=== PATIENT | female | born 1965 | race Caucasian/White ===

== ENCOUNTER 2019-07-12 16:22 | IRF | payer OTHER, BC, SELFPAY ==
--- NOTE | 2019-07-12 16:43 | PC.NURSE ---
This patient, Meliza Parisi, was admitted to [facility] Room 226-01. Patient/family oriented to hospital policies and general routines including ID bracelet, bed and alarms, visiting hours, pain management, procedures, bathroom and other care routines, personal items, smoking policy, room service/diet, and visiting hours. Valuables list has been completed. Information on how to activate the Rapid Response Team has been discussed. Patient/Family are encouraged to report perceived risks to care and to ask questions if they do not understand what they are told or what they should do.
[2019-07-12 18:51] VITALS: BP 131/71; PULSE 74; RESP 22; TEMP 36.7; O2SAT 98; BMI 41.1
[2019-07-12 21:49] VITALS: BP 133/70; PULSE 87; RESP 20; TEMP 37.5; O2SAT 98
[2019-07-13 04:35] LABS: Basophils Percent Auto 0.4 % (0.2-1.2); Eosinophils Absolute Auto 0.5 K/mm3 (0-0.3); Eosinophils Percent Auto 5.1 % (0-4.4); Hematocrit 33.2 % (37.0-47.0); Hemoglobin 10.3 g/dL (12.0-15.0); Immature Granulocyte Absolute 0.04 K/mm3 (0.00-0.031); Immature Granulocyte Percent A 0.4 % (0-0.5); Lymphocytes Absolute Auto 2.84 K/mm3 (0.9-3.2); Lymphocytes Percent Auto 28.8 % (18.3-44.2); Mean Corpuscular Hemoglobin 26.8 pg (26-34); Mean Corpuscular Volume 86.5 fl (80-100); Mean Platelet Volume 10.1 fl (7.4-10.4); Monocytes Absolute Auto 1.3 K/mm3 (0.1-0.6); Monocytes Percent Auto 13.1 % (2.6-8.5); Neutrophils Absolute Auto 5.1 K/mm3 (1.3-6.7); Neutrophils Percent Auto 52.2 % (45.5-73.1); Platelet Count Result 233 k/mm3 (150-375); Red Blood Count 3.84 M/mm3 (4.2-5.4); Red Cell Distribution Width 14.1 % (11.5-14.5); White Blood Count 9.9 K/mm3 (4.5-10.0)
[2019-07-13 04:48] LABS: Blood Urea Nitrogen 15 mg/dL (7-17); Carbon Dioxide 32 mmol/L (22-30); Chloride 100 mmol/L (98-107); Estimated CRCL calculation 78 ml/min; Estimated Glomerular Filt Rate > 60; Glucose 107 mg/dL (65-105); Potassium 3.9 mmol/L (3.4-5.0); Sodium 135 mmol/L (137-145)
[2019-07-13 06:24] VITALS: BP 136/72; PULSE 86; RESP 18; TEMP 37.2; O2SAT 97
[2019-07-13] MEDS: MAGNESIUM OXIDE 400 MG TABLET PO (08:50)
[2019-07-13] MEDS: SPIRONOLACTONE 25 MG TABLET PO (08:50)
[2019-07-13] MEDS: ASPIRIN 81 MG ENTERIC TABLET PO (08:50)
[2019-07-13] MEDS: CHOLECALCIFEROL 1,000 UNIT TABLET 5000 UNITS PO (08:50)
[2019-07-13] MEDS: POTASSIUM CHLORIDE 10 MEQ TABLET.ER PO (08:50)
[2019-07-13] MEDS: ENOXAPARIN 40 MG/0.4 ML SYRINGE SUB-Q (08:50)
[2019-07-13] MEDS: ESCITALOPRAM OXALATE 10 MG TABLET 20 MG PO (08:50)
[2019-07-13] MEDS: NAPROXEN SODIUM 220 MG TABLET PO ×2 (08:51→17:05)
[2019-07-13] MEDS: OMEGA 3 POLYUNSAT FATTY ACIDS 1 GM CAP PO (08:51)
[2019-07-13] MEDS: TORSEMIDE 20 MG TABLET 60 MG PO (08:51)
[2019-07-13] MEDS: LORATADINE 10 MG TABLET PO (08:51)
[2019-07-13] MEDS: FLUTICASONE PROPIONATE 0.05% NA SPR 16 GM BTL (*BKC) 2 SPRAY NASAL (08:51)
[2019-07-13] MEDS: DOCUSATE SODIUM 100 MG CAPSULE PO ×2 (08:51→17:05)
[2019-07-13 14:00] VITALS: BP 138/62; PULSE 76; RESP 20; TEMP 36.7; O2SAT 100
--- NOTE | 2019-07-13 14:49 | REHAB_ITS ---
DATE OF SERVICE: 07/12/2019 PRIMARY REHABILITATION IMPAIRMENT CATEGORY: Orthopedic, other etiological diagnosis distal fibula fracture. The patient was seen [id number] on 07/13/2019 at 10:30 a.m. HISTORY OF THE PRESENT ILLNESS: A 53-year-old right-handed female with past medical history of: 1. Bronchial asthma. 2. Peripheral neuropathy. 3. Narcolepsy. 4. Hyperlipidemia presented to [facility] on 07/08/2027 for a close reduction and external fixation of the right ankle. She injured her right ankle on 07/04/2019 when she fell while cleaning off a bookcase. The bookcase started falling forward and when she pushed it back she fell off her step stool. She was initially seen at [facility] where her ankle was splinted. She tried to ambulate in the ER and fell and fell again following day. She followed up with Dr. Dorantes and due to her repeated falling and instability, she was emergently taken to operating room where she underwent a closed reduction and external fixation placement. On 07/11/2019, she was taken back to the OR for removal of the external fixator and open reduction and internal fixation with Dr. Dorantes. At present, she is nonweightbearing to the right lower extremity for the next 6 weeks postoperatively. Her splint will need to stay on and dry until followup in the orthopedic office in 2 weeks. Sutures will come out at that time postoperatively. She has experienced postoperative pain, blood loss. Pain is controlled with the oral analgesic and hemodynamically she is stable right now. She was discharged to rehab on Lovenox. She meets the ARU criteria and does not have a qualifying 60% diagnosis. She will be admitted to ARU for the current COVID-19 crisis. The patient is an appropriate ARU 40% patient who during this COVID emergency requires admission to acute rehab. She has not traveled outside the [place] or had contact with someone who is ill that has travelled outside the [place] in the past 21 days. She has not traveled to an area of the [place] that is experiencing known transmission of the [place] virus and has not had close personal contact with anyone that has. The patient does not have a fever, does not have a lower respiratory illness symptom. Therapy was initiated at the Acute Care Facility and the patient was transferred to us from [facility] on 07/12/2019. The patient has had major surgery in the last 100 days prior to admission as mentioned above. She has had falls in the last year as mentioned above with the injury. PAST MEDICAL HISTORY: Allergic rhinitis, bronchial asthma, chronic diastolic congestive heart failure, depression, obstructive sleep apnea, peripheral neuropathy, hyperlipidemia, hypertension, multinodular thyroid, pulmonary edema. PAST SURGICAL HISTORY: Colonoscopy, laparoscopic endometriosis fulguration, right shoulder arthroscopy with partial replacement. 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 No alcohol or drug abuse. Lives independently one-level home. She was working and completely independent baseline with no assistive device. She plans to stay with her therapeutic recreation leader, Abbie Esteban, following inpatient rehabilitation. Her therapeutic recreation leader home is one-level with a ramp entrance. The patient reports 3 falls in the past week or so, one as the reason for the admission and then two more while attempting to use crutches. The patient underwent major surgery this admission. FAMILY HISTORY: Mother is diabetic, stroke, seizure, Friedreich's ataxia. Father hypertension, heart disease, alcohol/drug use, hyperlipidemia, leukemia. Brother, alcohol and drug abuse, other breast cancer and colon cancer. PRIOR LEVEL OF FUNCTION: Independent eating, oral care, toileting hygiene, shower and bathing, upper body, lower body, footwear, rolling left
--- NOTE | 2019-07-13 18:15 | PC.NURSE ---
spoke to patient about the nonformulary medication which is patient's control pill. patient stated she was not sure if someone could bring it and patient stated that she was told not to bring any medications here.
[2019-07-13 22:00] VITALS: BP 105/57; PULSE 71; RESP 19; TEMP 36.9; O2SAT 98
[2019-07-14 06:00] VITALS: BP 118/62; PULSE 73; RESP 18; TEMP 36.2; O2SAT 100
[2019-07-14] MEDS: ASPIRIN 81 MG ENTERIC TABLET PO (09:43)
[2019-07-14] MEDS: DOCUSATE SODIUM 100 MG CAPSULE PO ×2 (09:43→18:08)
[2019-07-14] MEDS: ENOXAPARIN 40 MG/0.4 ML SYRINGE SUB-Q (09:43)
[2019-07-14] MEDS: CHOLECALCIFEROL 1,000 UNIT TABLET 5000 UNITS PO (09:43)
[2019-07-14] MEDS: ESCITALOPRAM OXALATE 10 MG TABLET 20 MG PO (09:44)
[2019-07-14] MEDS: MAGNESIUM OXIDE 400 MG TABLET PO (09:44)
[2019-07-14] MEDS: LORATADINE 10 MG TABLET PO (09:44)
[2019-07-14] MEDS: FLUTICASONE PROPIONATE 0.05% NA SPR 16 GM BTL (*BKC) 2 SPRAY NASAL (09:44)
[2019-07-14] MEDS: POTASSIUM CHLORIDE 10 MEQ TABLET.ER PO (09:45)
[2019-07-14] MEDS: OMEGA 3 POLYUNSAT FATTY ACIDS 1 GM CAP PO (09:45)
[2019-07-14] MEDS: SPIRONOLACTONE 25 MG TABLET PO (09:45)
[2019-07-14] MEDS: NAPROXEN SODIUM 220 MG TABLET PO ×2 (09:45→18:08)
[2019-07-14] MEDS: TORSEMIDE 20 MG TABLET 60 MG PO (09:45)
--- NOTE | 2019-07-14 11:34 | WPDNEURORHBP ---
Subjective Date/time seen: Right distal fibular frcture with peripheral neuropathyand narcolepsy Review of Systems Review of Systems: All systems reviewed & are unremarkable except as noted in HPI and below Functional Status Ambulation Ability Ability to Ambulate 10 Feet: Minimum Assistance X 1 Ability to Ambulate 50 Feet With 2 Turns: Minimum Assistance X 1 Ambulation Assistive Devices: Walker, Wheeled Transfers Ability Ability to Transfer In/Out of Chair: Standby Assistance Exam Const: General: cooperative, healthy appearing, comfortable and no acute distress HENMT: Head: normal to inspection Eyes: General: appearance normal, both eyes and all related structures Neck: Neck: full ROM Resp: Auscultation: clear to auscultation bilaterally Cardio: Rate: regular rate Rhythm: regular rhythm Skin: General skin exam: no rashes or lesions noted Neuro: General: patient oriented x3 Cranial nerves: Yes CN's II-XII intact bilaterally Cognition (Neuro): normal cognition Gait exam (Neuro): Normal gait present Motor exam (neuro): 5/5 motor strength present throughout Deep tendon reflexes (DTR's): Right triceps reflex intensity grade: 1+, Left triceps reflex intensity grade: 1+, Rt Biceps (C5, C6): 1+, Left biceps reflex intensity grade: 1+, Right brachioradialis reflex intensity grade: 1+, Left brachioradialis reflex intensity grade: 1+, Right patellar reflex intensity grade: 1+, Left patellar reflex intensity grade: 1+, Right ankle reflex intensity grade: 1+ and Left ankle reflex intensity grade: 1+ Plantar Reflex Responses: downgoing: bilateral Objective Data Vital Signs Vital Signs: Vital Signs - 24 hr 07/13/19 14:00 07/13/19 22:00 07/14/19 06:00 Temperature 36.7 C 36.9 C 36.2 C L Pulse Rate 76 71 73 Respiratory Rate 20 19 18 Blood Pressure 138/62 105/57 L 118/62 Pulse Oximetry 100 98 100 Intake/Output Intake/Output: Intake & Output 07/11/19 07/12/19 07/13/19 07/14/19 23:59 23:59 23:59 23:59 Intake Total 240 720 280 Balance 240 720 280 Meds/Results Medications: Active Medications Generic Name Dose Route Start Last Admin Trade Name Freq PRN Reason Stop Dose Admin Albuterol 2 puff 07/12/19 18:16 Proventil Hfa INHALATION Q4-6H PRN Shortness Of Breath Or Wheezing Aspirin 81 mg 07/13/19 09:00 07/14/19 09:43 Aspirin Ec PO 81 mg DAILY JAVY Administration Docusate Sodium 100 mg 07/13/19 09:00 07/14/19 09:43 Colace Capsule PO 07/19/19 17:01 100 mg BID JAVY Administration Enoxaparin Sodium 40 mg 07/13/19 09:00 07/14/19 09:43 Lovenox SUB-Q 07/25/19 09:01 40 mg DAILY JAVY Administration Escitalopram Oxalate 20 mg 07/13/19 09:00 07/14/19 09:44 Lexapro PO 20 mg DAILY JAVY Administration Fish Oil 1 gm 07/13/19 09:00 07/14/19 09:45 Lovaza PO 1 gm DAILY JAVY Administration Fluticasone Propionate 2 spray 07/13/19 09:00 07/14/19 09:44 Flonase 0.05% Nasal [place] NASAL 2 spray DAILY [facility] Administration Hydrocortisone 1 applic 07/12/19 19:00 Proctocream-Hc 2.5% TOPICAL 07/26/19 18:59 BID PRN fissures Loratadine 10 mg 07/13/19 09:00 07/14/19 09:44 Claritin PO 10 mg DAILY [facility] Administration Magnesium Oxide 400 mg 07/13/19 09:00 07/14/19 09:44 Mag-Ox PO 400 mg DAILY JAVY Administration Naproxen 220 mg 07/13/19 09:00 07/14/19 09:45 Aleve PO 07/17/19 17:01 220 mg BID JAVY Administration Oxycodone/Acetaminophen 1 tablet 07/12/19 18:16 07/14/19 09:52 Percocet 5-325 Mg PO 1 tablet Q4H PRN Administration Pain (Scale Score 4-6) Potassium Chloride 10 meq 07/13/19 09:00 07/14/19 09:45 Kcl Tablet PO 10 meq DAILY [facility] Administration Spironolactone 25 mg 07/13/19 09:00 07/14/19 09:45 Aldactone PO 25 mg DAILY JAVY Administration Torsemide 60 mg 07/13/19 09:00 07/14/19 09:45 Demadex PO 60 mg QAM [facility] Administration Vitamin D 5,000 unit 07/13/19 09
[2019-07-14 14:00] VITALS: BP 105/54; PULSE 71; RESP 18; TEMP 36.8; O2SAT 100
[2019-07-14 22:00] VITALS: BP 138/58; PULSE 80; RESP 18; TEMP 36.4; O2SAT 99
[2019-07-15 06:00] VITALS: BP 142/60; PULSE 82; RESP 20; TEMP 37; O2SAT 100
[2019-07-15] MEDS: MAGNESIUM OXIDE 400 MG TABLET PO (08:27)
[2019-07-15] MEDS: TORSEMIDE 20 MG TABLET 60 MG PO (08:27)
[2019-07-15] MEDS: SPIRONOLACTONE 25 MG TABLET PO (08:27)
[2019-07-15] MEDS: OMEGA 3 POLYUNSAT FATTY ACIDS 1 GM CAP PO (08:27)
[2019-07-15] MEDS: NAPROXEN SODIUM 220 MG TABLET PO ×2 (08:27→17:25)
[2019-07-15] MEDS: FLUTICASONE PROPIONATE 0.05% NA SPR 16 GM BTL (*BKC) 2 SPRAY NASAL (08:27)
[2019-07-15] MEDS: CHOLECALCIFEROL 1,000 UNIT TABLET 5000 UNITS PO (08:27)
[2019-07-15] MEDS: ASPIRIN 81 MG ENTERIC TABLET PO (08:27)
[2019-07-15] MEDS: ESCITALOPRAM OXALATE 10 MG TABLET 20 MG PO (08:27)
[2019-07-15] MEDS: ENOXAPARIN 40 MG/0.4 ML SYRINGE SUB-Q (08:28)
[2019-07-15] MEDS: LORATADINE 10 MG TABLET PO (08:28)
[2019-07-15] MEDS: DOCUSATE SODIUM 100 MG CAPSULE PO ×2 (08:28→17:14)
[2019-07-15] MEDS: POTASSIUM CHLORIDE 10 MEQ TABLET.ER PO (08:28)
[2019-07-15 13:08] VITALS: BMI 41.1
--- NOTE | 2019-07-15 13:34 | RPD ---
INDIVIDUALIZED PLAN OF CARE FOR Meliza Parisi Brief Synthesis of Pre-Admission Screen, Post-Admission Evaluation and Therapy Evaluations: The patient presents to rehab with distal fibula fracture. Comorbidities include dislocation of the tibiotalar joint laterally, medial malleolus fracture status post closed reduction and external fixation on 07/08/2019 and then status post open reduction internal fixation and removal of external fixator, acute postoperative pain, acute blood loss anemia, hypertension, hyperlipidemia, obstructive sleep apnea. The patient requires physician services for medical oversight, management of postop complications in setting of present comorbidities, and pain management. Labs will be drawn to monitor blood counts and electrolytes periodically. The patient requires nursing services for DVT prophylactics, infection protection, medication management and education, pressure relief, and wound care Deficits include:ADLs, Balance, Endurance, Family Training/Education, Mobility, Pain Management, ROM, Safety, Strength,Transfers Link Trainer Teacher/Case Management for: Discharge Planning and Patient/Family Counseling Physical Therapy: 5 days per week for 90 minutes. Treatments may include: Therapeutic Exercise, Gait Training, Neuromuscular Re-education, Transfer Training, Community Reintegration, Bed Mobility, Patient/Family Education, Wheelchair Mobility Group Therapy/Concurrent Therapy Rationales: -Improve attention span during functional activities in a distracted environment. -Enhance problem solving and/or adequate judgment skills during functional activities in a distracted environment. -Promote increased safety awareness in a distracted environment to reduce fall risk with functional tasks, transfers, and ambulation to allow a more safe, self-sufficient return to the home environment. -Improve dynamic balance skills to promote safety and independence with functional activities in a distracted environment for maximum gain. Occupational Therapy: 5 days per week for 90 minutes. Treatments may include: Therapeutic Exercise, Therapeutic Activity, Cognitive Training, Self-Care Transfer Training, Community Reintegration, Home Management, Patient/Family Education, Wheelchair Mobility Training, Energy Conservation Training Group Therapy/Concurrent Therapy Rationales: -Allow therapist to observe and teach generalization and carry-over of skills learned in individual therapy. -Enhance problem solving and sequencing skills during therapeutic activities in a distracted environment. -Promote increased safety awareness in a realistic setting to reduce fall risk with functional tasks due to visual and verbal distractions. -Increase functional level with ADLs, ADL transfers and use of adaptive equipment through therapeutic activities with others while promoting safety to allow a more safe, self-sufficient return home. Medical Prognosis: Good Anticipated Length of Stay: 12 days Rehab Goals: Eating Goal: 06-Independent Oral Hygiene Goal: 06-Independent Toileting Hygiene Goal: 06-Independent Shower/Bathe Self Goal: 06-Independent Upper Body Dressing Goal: 06-Independent Lower Body Dressing Goal: 06-Independent Putting On/Taking Off Footwear Goal: 06-Independent Rolling Left and Right Goal: 06-Independent Sit to Lying Goal: 06-Independent Lying to Sitting on Side of Bed Goal: 06-Independent Sit to Stand Goal: 06-Independent Chair/[id number]-lf-Ohfbb Transfer Goal: 06-Independent Toilet Transfer Goal: 06-Independent Car Transfer Goal: 06-Independent Walk 10' Goal: 06-Independent Walk 50' with Two Turns Goal: 06-Independent Walk 150' Goal: 06-Independent Walk 10' on Uneven Surface Goal: 06-Independent 1 Step (Curb) Goal: 03-Partial/Moderate Assistance 4 Steps Goal: 88-Not Attempted Due to Medical Condition/Safety Concerns 12 Steps Goal Score: 88-Not Attempted Due to Medical Condition/Safety Concerns Picking Up Object Goal: 06-Independent Wheel 50' with Two
[2019-07-15 14:00] VITALS: BP 111/60; PULSE 76; RESP 18; TEMP 36.5; O2SAT 100
[2019-07-15 22:00] VITALS: BP 139/71; PULSE 80; RESP 19; TEMP 36.6; O2SAT 100
[2019-07-15 22:23] VITALS: PULSE 71; RESP 22; O2SAT 97
[2019-07-16 02:03] VITALS: PULSE 64; RESP 18; O2SAT 95
[2019-07-16 06:00] VITALS: BP 116/65; PULSE 67; RESP 20; TEMP 36.1; O2SAT 98
[2019-07-16] MEDS: CHOLECALCIFEROL 1,000 UNIT TABLET 5000 UNITS PO (09:34)
[2019-07-16] MEDS: FLUTICASONE PROPIONATE 0.05% NA SPR 16 GM BTL (*BKC) 2 SPRAY NASAL (09:34)
[2019-07-16] MEDS: ENOXAPARIN 40 MG/0.4 ML SYRINGE SUB-Q (09:34)
[2019-07-16] MEDS: LORATADINE 10 MG TABLET PO (09:35)
[2019-07-16] MEDS: OMEGA 3 POLYUNSAT FATTY ACIDS 1 GM CAP PO (09:35)
[2019-07-16] MEDS: ASPIRIN 81 MG ENTERIC TABLET PO (09:35)
[2019-07-16] MEDS: ESCITALOPRAM OXALATE 10 MG TABLET 20 MG PO (09:35)
[2019-07-16] MEDS: DOCUSATE SODIUM 100 MG CAPSULE PO ×2 (09:35→17:12)
[2019-07-16] MEDS: SPIRONOLACTONE 25 MG TABLET PO (09:35)
[2019-07-16] MEDS: TORSEMIDE 20 MG TABLET 60 MG PO (09:35)
[2019-07-16] MEDS: NAPROXEN SODIUM 220 MG TABLET PO ×2 (09:35→17:12)
[2019-07-16] MEDS: POTASSIUM CHLORIDE 10 MEQ TABLET.ER PO (09:35)
[2019-07-16] MEDS: MAGNESIUM OXIDE 400 MG TABLET PO (09:35)
--- NOTE | 2019-07-16 12:25 | PCPTNOTE ---
Meliza Parisi was evaluated for a wheeled walker on 07/16/2019 by this physical therapist. The wheeled walker will resolve patient's mobility limitations and will be used for ADL's within the home. The patient can safely use the wheeled walker. ?The wheeled walker will resolve the patient?s mobility deficits, including impaired balance and strength. Elizabeth Gomes, PT, DPT
--- NOTE | 2019-07-16 12:50 | PCOTNOTE ---
Meliza Parisi was evaluated for a bedside commode 07/16/19 by this occupational therapist. The bedside commode will resolve the patient's ability to complete toileting independently in her home. Mrs. Parisi can safely use the commode is required due to patient's deficits in independence and safety with mobility into her bathroom related to her recent right distal fibula fracture with ORIF 07/11/19 and non-weight bearing to right lower extremity.
[2019-07-16 14:00] VITALS: BP 139/62; PULSE 92; RESP 20; TEMP 36.1; O2SAT 96
--- NOTE | 2019-07-16 14:00 | WPDNEURORHBP ---
Subjective Date/time seen: 07/16/19 14:00 Interval history: this 53-year-old woman is here after having at surgery for right fibular fracture she is nonweightbearing and has has a splint on of which needs to be on for the next total of 6 weeks postoperatively and has follow-up appointment with them the patient also has underlying issue bronchial asthma peripheral neuropathy and narcolepsy along with hyperlipidemia all of which are stable at this point Patient denies any fever chills sore throat headache nausea vomiting or abdominal pain. She is making progress Review of Systems Review of Systems: All systems reviewed & are unremarkable except as noted in HPI and below Functional Status Ambulation Ability Ability to Ambulate 10 Feet: Independent Ability to Ambulate 50 Feet With 2 Turns: Independent Ability to Ambulate 150 Feet: Standby Assistance Ambulation Assistive Devices: Walker, Wheeled Transfers Ability Ability to Transfer In/Out of Chair: Standby Assistance Exam Const: General: comfortable and no acute distress HENMT: General nose exam: Normal nares present Mouth: Yes moist mucous membranes Eyes: General: appearance normal, both eyes and all related structures Neck: Neck: supple and no JVD Resp: Effort & Inspection: normal respiratory effort Auscultation: clear to auscultation bilaterally Cardio: Rate: regular rate Rhythm: regular rhythm GI: GI Palp: Yes Soft to palpation Auscultation: normal bowel sounds Skin: General skin exam: normal color and no rashes or lesions noted Neuro: Other: patient is awake alert well oriented in time place present and person is speech and language functions are normal and cranial examination normal the only weakness is related to the surgery she has had and she needs assistance all the activities of daily living. Extrem: Other: Right lower extremity is in a splint Psych: Mental Status: mental status grossly normal Objective Data Vital Signs Vital Signs: Vital Signs - 24 hr 07/15/19 22:00 07/15/19 22:23 07/16/19 02:03 Temperature 36.6 C Pulse Rate 80 71 64 Respiratory Rate 19 22 H 18 Blood Pressure 139/71 Pulse Oximetry 100 97 95 07/16/19 06:00 Temperature 36.1 C L Pulse Rate 67 Respiratory Rate 20 Blood Pressure 116/65 Pulse Oximetry 98 Intake/Output Intake/Output: Intake & Output 07/13/19 07/14/19 07/15/19 07/16/19 23:59 23:59 23:59 23:59 Intake Total 720 760 960 480 Balance 720 760 960 480 Meds/Results Medications: Active Medications Generic Name Dose Route Start Last Admin Trade Name Lesley PRN Reason Stop Dose Admin Albuterol 2 puff 07/12/19 18:16 Proventil Hfa INHALATION Q4-6H PRN Shortness Of Breath Or Wheezing Aspirin 81 mg 07/13/19 09:00 07/16/19 09:35 Aspirin Ec PO 81 mg DAILY JAVY Administration Docusate Sodium 100 mg 07/13/19 09:00 07/16/19 09:35 Colace Capsule PO 07/19/19 17:01 100 mg BID JAVY Administration Enoxaparin Sodium 40 mg 07/13/19 09:00 07/16/19 09:34 Lovenox SUB-Q 07/25/19 09:01 40 mg DAILY JAVY Administration Escitalopram Oxalate 20 mg 07/13/19 09:00 07/16/19 09:35 Lexapro PO 20 mg DAILY JAVY Administration Fish Oil 1 gm 07/13/19 09:00 07/16/19 09:35 Lovaza PO 1 gm DAILY JAVY Administration Fluticasone Propionate 2 spray 07/13/19 09:00 07/16/19 09:34 Flonase 0.05% Nasal [place] NASAL 2 spray DAILY JAVY Administration Hydrocortisone 1 applic 07/12/19 19:00 Proctocream-Hc 2.5% TOPICAL 07/26/19 18:59 BID PRN fissures Loratadine 10 mg 07/13/19 09:00 07/16/19 09:35 Claritin PO 10 mg DAILY JAVY Administration Magnesium Oxide 400 mg 07/13/19 09:00 07/16/19 09:35 Mag-Ox PO 400 mg DAILY JAVY Administration Naproxen 220 mg 07/13/19 09:00 07/16/19 09:35 Aleve PO 07/17/19 17:01 220 mg BID JAVY Administration Oxycodone/Acetaminophen 1 tablet 07/12/19 18:16 07/16/19 09:42 Percocet 5-3
--- NOTE | 2019-07-16 15:41 | PCPTNOTE ---
Elizabeth Gomes PT completed an inpatient rehab wheelchair evaluation on Meliza Parisi on 07/16/2019. The patient is unable to safely and independently ambulate household distances due to their current impairments. Their diagnosis is Distal Fibula Fracture and their impairments include decreased strength, decreased endurance, decreased range of motion, decreased balance, and lower extremity weakness. Ms. Parisi weight bearing status is R lower extremity non-weightbearing. The patient demonstrates significant functional mobility limitations that impair their ability to participate in mobility-related activities of daily living (MRADLs), including toileting, feeding, dressing, grooming, and bathing in the customary locations in the home. These limitations cannot be sufficiently resolved by the use of an appropriately fitted cane or walker. It is recommended that the patient utilize a wheelchair for functional mobility within the home in order to facilitate optimal safety, independence and participation in all MRADL's and adequately access their home environment on a regular basis. The patient's home provides adequate access between rooms, maneuvering space, and surfaces to accommodate the recommended wheelchair. The use of a wheelchair for functional mobility is strongly recommended and the patient is receptive to using the wheelchair. The use of this wheelchair will significantly improve the patient's ability to participate in MRADLS and the patient will use it on a regular basis in the home. This will facilitate optimal safety, independence, and participation. The patient has demonstrated sufficient physical and mental capabilities needed to safely propel a manual wheelchair that is provided in the home during a typical day. Recommended Wheelchair Frame: STANDARD Recommended Wheelchair Size: 22 X 18 (Patient's anatomical hip width is 20 ) Recommended Wheelchair Cushion:STANDARD -Elevating legrests are recommended because the patient has a musculoskeletal condition or the presence of a cast or brace. Elevating legrests are recommended because the patient has significant edema of the lower extremities that requires an elevating legrest. -Anti-tippers are recommended due to patient demonstrating increased risk for falls. They would benefit from anti-tippers with added safety and stabilization. -Adjustable arm height is recommended because the patient requires an arm height that is different than that which is available using non-adjustable arms. The patient spends at least 2 hours per day in the wheelchair. Elizabeth Gomes PT, DPT ___4/28/20 Evaluating Therapist Date I agree with and certify that the above recommendation is medically necessary. Referring Physician Date
[2019-07-16 16:00] VITALS: PULSE 90; RESP 20
[2019-07-16 22:00] VITALS: BP 107/57; PULSE 72; RESP 18; TEMP 36.7; O2SAT 97
[2019-07-17 01:56] VITALS: PULSE 68; RESP 22; O2SAT 96
[2019-07-17 06:00] VITALS: BP 105/53; PULSE 66; RESP 18; TEMP 36.2; O2SAT 97
[2019-07-17 08:00] VITALS: PULSE 66; RESP 18; O2SAT 97
[2019-07-17] MEDS: TORSEMIDE 20 MG TABLET 60 MG PO (10:00)
[2019-07-17] MEDS: LORATADINE 10 MG TABLET PO (10:13)
[2019-07-17] MEDS: OMEGA 3 POLYUNSAT FATTY ACIDS 1 GM CAP PO (10:13)
[2019-07-17] MEDS: CHOLECALCIFEROL 1,000 UNIT TABLET 5000 UNITS PO (10:13)
[2019-07-17] MEDS: DOCUSATE SODIUM 100 MG CAPSULE PO ×2 (10:14→17:02)
[2019-07-17] MEDS: POTASSIUM CHLORIDE 10 MEQ TABLET.ER PO (10:15)
[2019-07-17] MEDS: SPIRONOLACTONE 25 MG TABLET PO (10:15)
[2019-07-17] MEDS: ASPIRIN 81 MG ENTERIC TABLET PO (10:16)
[2019-07-17] MEDS: FLUTICASONE PROPIONATE 0.05% NA SPR 16 GM BTL (*BKC) 2 SPRAY NASAL (10:16)
[2019-07-17] MEDS: MAGNESIUM OXIDE 400 MG TABLET PO (10:16)
[2019-07-17] MEDS: NAPROXEN SODIUM 220 MG TABLET PO ×2 (10:16→17:02)
[2019-07-17] MEDS: ENOXAPARIN 40 MG/0.4 ML SYRINGE SUB-Q (10:17)
[2019-07-17] MEDS: ESCITALOPRAM OXALATE 10 MG TABLET 20 MG PO (10:17)
--- NOTE | 2019-07-17 13:37 | WPDNEURORHBP ---
Subjective Date/time seen: 07/17/19 13:37 Interval history: this 53 year old woman is here after having had surgery for the right fibular fracture and the right leg is in splint and she is nonweightbearing for several weeks she also has history of narcolepsy and peripheral neuropathy along with asthma all of those things are stable she denies any headache nausea vomiting chest pain shortness of breath fever chills or sore throat Review of Systems Review of Systems: All systems reviewed & are unremarkable except as noted in HPI and below Functional Status Ambulation Ability Ability to Ambulate 10 Feet: Independent Ability to Ambulate 50 Feet With 2 Turns: Independent Ability to Ambulate 150 Feet: Standby Assistance Ambulation Assistive Devices: Walker, Wheeled Transfers Ability Ability to Transfer In/Out of Chair: Standby Assistance Exam Const: General: comfortable and no acute distress HENMT: General nose exam: Normal nares present Mouth: Yes moist mucous membranes Eyes: General: appearance normal, both eyes and all related structures Neck: Neck: supple and no JVD Resp: Effort & Inspection: normal respiratory effort Auscultation: clear to auscultation bilaterally Cardio: Rate: regular rate Rhythm: regular rhythm GI: GI Palp: Yes Soft to palpation Auscultation: normal bowel sounds Skin: General skin exam: normal color and no rashes or lesions noted Neuro: Other: patient is awake and alert with normal speech and language function normal cranial examination normal upper extremity strength the handicap she has the nonweightbearing status of the right lower extremity needing assistance in the all the activities of daily living she is able to wiggle her toes on the right side denies any significant paresthesias does have evidence of some peripheral neuropathy Extrem: Other: right leg is in a splint Psych: Mental Status: mental status grossly normal Objective Data Vital Signs Vital Signs: Vital Signs - 24 hr 07/16/19 14:00 07/16/19 16:00 07/16/19 22:00 Temperature 36.1 C L 36.7 C Pulse Rate 92 90 72 Respiratory Rate 20 20 18 Blood Pressure 139/62 107/57 L Pulse Oximetry 96 97 07/17/19 01:56 07/17/19 06:00 Temperature 36.2 C L Pulse Rate 68 66 Respiratory Rate 22 H 18 Blood Pressure 105/53 L Pulse Oximetry 96 97 Intake/Output Intake/Output: Intake & Output 07/14/19 07/15/19 07/16/19 07/17/19 23:59 23:59 23:59 23:59 Intake Total 760 960 720 480 Balance 760 960 720 480 Meds/Results Medications: Active Medications Generic Name Dose Route Start Last Admin Trade Name Freq PRN Reason Stop Dose Admin Albuterol 2 puff 07/12/19 18:16 Proventil Hfa INHALATION Q4-6H PRN Shortness Of Breath Or Wheezing Aspirin 81 mg 07/13/19 09:00 07/17/19 10:16 Aspirin Ec PO 81 mg DAILY JAVY Administration Docusate Sodium 100 mg 07/13/19 09:00 07/17/19 10:14 Colace Capsule PO 07/19/19 17:01 100 mg BID JAVY Administration Enoxaparin Sodium 40 mg 07/13/19 09:00 07/17/19 10:17 Lovenox SUB-Q 07/25/19 09:01 40 mg DAILY JAVY Administration Escitalopram Oxalate 20 mg 07/13/19 09:00 07/17/19 10:17 Lexapro PO 20 mg DAILY JAVY Administration Fish Oil 1 gm 07/13/19 09:00 07/17/19 10:13 Lovaza PO 1 gm DAILY JAVY Administration Fluticasone Propionate 2 spray 07/13/19 09:00 07/17/19 10:16 Flonase 0.05% Nasal [place] NASAL 2 spray DAILY JAVY Administration Hydrocortisone 1 applic 07/12/19 19:00 Proctocream-Hc 2.5% TOPICAL 07/26/19 18:59 BID PRN fissures Loratadine 10 mg 07/13/19 09:00 07/17/19 10:13 Claritin PO 10 mg DAILY JAVY Administration Magnesium Oxide 400 mg 07/13/19 09:00 07/17/19 10:16 Mag-Ox PO 400 mg DAILY JAVY Administration Naproxen 220 mg 07/13/19 09:00 07/17/19 10:16 Aleve PO 07/17/19 17:01 220 mg BID JAVY Administration Oxycodone/Acetaminophen 1 tablet 07/12/19 18:16
[2019-07-17 14:00] VITALS: BP 132/58; PULSE 86; RESP 20; TEMP 35.9; O2SAT 96
[2019-07-17 22:00] VITALS: BP 169/55; PULSE 85; RESP 18; TEMP 36.4; O2SAT 96
[2019-07-17 23:27] VITALS: PULSE 74; RESP 18; O2SAT 97
[2019-07-18 06:00] VITALS: BP 156/63; PULSE 60; RESP 20; TEMP 36.6; O2SAT 96
[2019-07-18] MEDS: DOCUSATE SODIUM 100 MG CAPSULE PO ×2 (09:00→17:14)
[2019-07-18] MEDS: OMEGA 3 POLYUNSAT FATTY ACIDS 1 GM CAP PO (09:00)
[2019-07-18] MEDS: CHOLECALCIFEROL 1,000 UNIT TABLET 5000 UNITS PO (09:00)
[2019-07-18] MEDS: FLUTICASONE PROPIONATE 0.05% NA SPR 16 GM BTL (*BKC) 2 SPRAY NASAL (09:00)
[2019-07-18] MEDS: POTASSIUM CHLORIDE 10 MEQ TABLET.ER PO (09:01)
[2019-07-18] MEDS: LORATADINE 10 MG TABLET PO (09:01)
[2019-07-18] MEDS: MAGNESIUM OXIDE 400 MG TABLET PO (09:01)
[2019-07-18] MEDS: ESCITALOPRAM OXALATE 10 MG TABLET 20 MG PO (09:01)
[2019-07-18] MEDS: ASPIRIN 81 MG ENTERIC TABLET PO (09:01)
[2019-07-18] MEDS: SPIRONOLACTONE 25 MG TABLET PO (09:01)
[2019-07-18] MEDS: ENOXAPARIN 40 MG/0.4 ML SYRINGE SUB-Q (09:01)
[2019-07-18] MEDS: TORSEMIDE 20 MG TABLET 60 MG PO (09:01)
--- NOTE | 2019-07-18 10:37 | WPDNEURORHBP ---
Subjective Date/time seen: July 18 2019 10:37 Interval history: this 53-year-old woman is here on the acute rehab floor after having at surgery for the right fibular fracture and that extremity is in immobilizer and she is non med that extremity she has underlying narcolepsy and peripheral neuropathy which is stable she denies any headache nausea vomiting chest pain or shortness of breath fever chills sore throat She is making excellent progress in the rehab Review of Systems Review of Systems: All systems reviewed & are unremarkable except as noted in HPI and below Functional Status Ambulation Ability Ability to Ambulate 10 Feet: Independent Ability to Ambulate 50 Feet With 2 Turns: Independent Ability to Ambulate 150 Feet: Standby Assistance Ambulation Assistive Devices: Walker, Wheeled Transfers Ability Ability to Transfer In/Out of Chair: Independent Exam Const: General: comfortable and no acute distress HENMT: General nose exam: Normal nares present Mouth: Yes moist mucous membranes Eyes: General: appearance normal, both eyes and all related structures Neck: Neck: supple and no JVD Resp: Effort & Inspection: normal respiratory effort Auscultation: clear to auscultation bilaterally Cardio: Rate: regular rate Rhythm: regular rhythm GI: GI Palp: Yes Soft to palpation Auscultation: normal bowel sounds Skin: General skin exam: normal color and no rashes or lesions noted Neuro: Other: patient's mental status examination normal cranial nerve examination normal the upper extremity strength is very well intact she is doing well in the rehab and whatever weakness and the handicap she has is from the fibular fracture and non weight-bearing status which she is able to tolerate fairly well we Extrem: Other: right leg is in immobilizer Psych: Mental Status: mental status grossly normal Objective Data Vital Signs Vital Signs: Vital Signs - 24 hr 07/18/19 14:00 07/18/19 22:00 07/18/19 23:19 Temperature 36.0 C L 36.4 C L Pulse Rate 75 63 70 Respiratory Rate 17 16 23 H Blood Pressure 117/72 102/59 L Pulse Oximetry 96 98 96 07/19/19 06:00 Temperature 36.4 C L Pulse Rate 70 Respiratory Rate 20 Blood Pressure 119/62 Pulse Oximetry 97 Intake/Output Intake/Output: Intake & Output 07/16/19 07/17/19 07/18/19 07/19/19 23:59 23:59 23:59 23:59 Intake Total 720 720 840 360 Balance 720 720 840 360 Meds/Results Medications: Active Medications Generic Name Dose Route Start Last Admin Trade Name Lesley PRN Reason Stop Dose Admin Albuterol 2 puff 07/12/19 18:16 Proventil Hfa INHALATION Q4-6H PRN Shortness Of Breath Or Wheezing Aspirin 81 mg 07/13/19 09:00 07/19/19 08:55 Aspirin Ec PO 81 mg DAILY JAVY Administration Docusate Sodium 100 mg 07/13/19 09:00 07/19/19 08:56 Colace Capsule PO 07/19/19 17:01 100 mg BID JAVY Administration Enoxaparin Sodium 40 mg 07/13/19 09:00 07/19/19 08:56 Lovenox SUB-Q 07/25/19 09:01 40 mg DAILY JAVY Administration Escitalopram Oxalate 20 mg 07/13/19 09:00 07/19/19 08:56 Lexapro PO 20 mg DAILY JAVY Administration Fish Oil 1 gm 07/13/19 09:00 07/19/19 08:55 Lovaza PO 1 gm DAILY JAVY Administration Fluticasone Propionate 2 spray 07/13/19 09:00 07/19/19 08:55 Flonase 0.05% Nasal [place] NASAL 2 spray DAILY JAVY Administration Hydrocortisone 1 applic 07/12/19 19:00 Proctocream-Hc 2.5% TOPICAL 07/26/19 18:59 BID PRN fissures Loratadine 10 mg 07/13/19 09:00 07/19/19 08:56 Claritin PO 10 mg DAILY JAVY Administration Magnesium Oxide 400 mg 07/13/19 09:00 07/19/19 08:56 Mag-Ox PO 400 mg DAILY JAVY Administration Oxycodone/Acetaminophen 1 tablet 07/12/19 18:16 07/19/19 08:56 Percocet 5-325 Mg PO 1 tablet Q4H PRN Administration Pain (Scale Score 4-6) Potassium Chloride 10 meq 07/13/19 09:00 07/19/19 08:55 Kcl Tablet PO 10 meq DAILY
[2019-07-18 14:00] VITALS: BP 117/72; PULSE 75; RESP 17; TEMP 36; O2SAT 96
[2019-07-18 22:00] VITALS: BP 102/59; PULSE 63; RESP 16; TEMP 36.4; O2SAT 98
[2019-07-18 23:19] VITALS: PULSE 70; RESP 23; O2SAT 96
[2019-07-19 06:00] VITALS: BP 119/62; PULSE 70; RESP 20; TEMP 36.4; O2SAT 97
[2019-07-19] MEDS: OMEGA 3 POLYUNSAT FATTY ACIDS 1 GM CAP PO (08:55)
[2019-07-19] MEDS: CHOLECALCIFEROL 1,000 UNIT TABLET 5000 UNITS PO (08:55)
[2019-07-19] MEDS: FLUTICASONE PROPIONATE 0.05% NA SPR 16 GM BTL (*BKC) 2 SPRAY NASAL (08:55)
[2019-07-19] MEDS: ASPIRIN 81 MG ENTERIC TABLET PO (08:55)
[2019-07-19] MEDS: POTASSIUM CHLORIDE 10 MEQ TABLET.ER PO (08:55)
[2019-07-19] MEDS: LORATADINE 10 MG TABLET PO (08:56)
[2019-07-19] MEDS: ESCITALOPRAM OXALATE 10 MG TABLET 20 MG PO (08:56)
[2019-07-19] MEDS: MAGNESIUM OXIDE 400 MG TABLET PO (08:56)
[2019-07-19] MEDS: ENOXAPARIN 40 MG/0.4 ML SYRINGE SUB-Q (08:56)
[2019-07-19] MEDS: TORSEMIDE 20 MG TABLET 60 MG PO (08:56)
[2019-07-19] MEDS: SPIRONOLACTONE 25 MG TABLET PO (08:56)
[2019-07-19] MEDS: DOCUSATE SODIUM 100 MG CAPSULE PO ×2 (08:56→17:01)
--- NOTE | 2019-07-19 12:50 | WPDNEURORHBP ---
Subjective Date/time seen: 07/19/19 12:50 Interval history: this 53-year-old woman is here after having had surgery for the fever fracture she has done remarkably well in the rehab and from the therapy standpoint and overall medically she is stable to be discharged she denies any headache nausea vomiting chest pain shortness of breath fever chills or sore throat Review of Systems Review of Systems: All systems reviewed & are unremarkable except as noted in HPI and below Functional Status Ambulation Ability Ability to Ambulate 10 Feet: Independent Ability to Ambulate 50 Feet With 2 Turns: Independent Ability to Ambulate 150 Feet: Standby Assistance Ambulation Assistive Devices: Walker, Wheeled Transfers Ability Ability to Transfer In/Out of Chair: Independent Exam Const: General: comfortable and no acute distress HENMT: General nose exam: Normal nares present Mouth: Yes moist mucous membranes Eyes: General: appearance normal, both eyes and all related structures Neck: Neck: supple and no JVD Resp: Effort & Inspection: normal respiratory effort Auscultation: clear to auscultation bilaterally Cardio: Rate: regular rate Rhythm: regular rhythm GI: GI Palp: Yes Soft to palpation Auscultation: normal bowel sounds Skin: General skin exam: normal color and no rashes or lesions noted Neuro: Other: patient's neurological examination is intact with normal mental status examination normal screening examination of course she is limited because of the surgery on the fibular fracture and need assistance but most the time she is doing remarkably well Extrem: Other: right lower extremity in a splint Psych: Mental Status: mental status grossly normal Objective Data Vital Signs Vital Signs: Vital Signs - 24 hr 07/18/19 14:00 07/18/19 22:00 07/18/19 23:19 Temperature 36.0 C L 36.4 C L Pulse Rate 75 63 70 Respiratory Rate 17 16 23 H Blood Pressure 117/72 102/59 L Pulse Oximetry 96 98 96 07/19/19 06:00 Temperature 36.4 C L Pulse Rate 70 Respiratory Rate 20 Blood Pressure 119/62 Pulse Oximetry 97 Intake/Output Intake/Output: Intake & Output 07/16/19 07/17/19 07/18/19 07/19/19 23:59 23:59 23:59 23:59 Intake Total 720 720 840 360 Balance 720 720 840 360 Meds/Results Medications: Active Medications Generic Name Dose Route Start Last Admin Trade Name Freq PRN Reason Stop Dose Admin Albuterol 2 puff 07/12/19 18:16 Proventil Hfa INHALATION Q4-6H PRN Shortness Of Breath Or Wheezing Aspirin 81 mg 07/13/19 09:00 07/19/19 08:55 Aspirin Ec PO 81 mg DAILY JAVY Administration Docusate Sodium 100 mg 07/13/19 09:00 07/19/19 08:56 Colace Capsule PO 07/19/19 17:01 100 mg BID JAVY Administration Enoxaparin Sodium 40 mg 07/13/19 09:00 07/19/19 08:56 Lovenox SUB-Q 07/25/19 09:01 40 mg DAILY [facility] Administration Escitalopram Oxalate 20 mg 07/13/19 09:00 07/19/19 08:56 Lexapro PO 20 mg DAILY JAVY Administration Fish Oil 1 gm 07/13/19 09:00 07/19/19 08:55 Lovaza PO 1 gm DAILY JAVY Administration Fluticasone Propionate 2 spray 07/13/19 09:00 07/19/19 08:55 Flonase 0.05% Nasal [place] NASAL 2 spray DAILY [facility] Administration Hydrocortisone 1 applic 07/12/19 19:00 Proctocream-Hc 2.5% TOPICAL 07/26/19 18:59 BID PRN fissures Loratadine 10 mg 07/13/19 09:00 07/19/19 08:56 Claritin PO 10 mg DAILY JAVY Administration Magnesium Oxide 400 mg 07/13/19 09:00 07/19/19 08:56 Mag-Ox PO 400 mg DAILY JAVY Administration Oxycodone/Acetaminophen 1 tablet 07/12/19 18:16 07/19/19 08:56 Percocet 5-325 Mg PO 1 tablet Q4H PRN Administration Pain (Scale Score 4-6) Potassium Chloride 10 meq 07/13/19 09:00 07/19/19 08:55 Kcl Tablet PO 10 meq DAILY JAVY Administration Spironolactone 25 mg 07/13/19 09:00 07/19/19 08:56 Aldactone PO 25 mg DAILY JAVY Administration Torsemide 60 mg 0
[2019-07-19 14:00] VITALS: BP 133/65; PULSE 81; RESP 18; TEMP 36.2; O2SAT 97
[2019-07-19 22:00] VITALS: BP 104/75; PULSE 71; RESP 18; TEMP 36.9; O2SAT 99
[2019-07-19 22:25] VITALS: PULSE 71; RESP 21; O2SAT 98
[2019-07-20 00:14] VITALS: RESP 17
[2019-07-20 04:05] VITALS: RESP 22
[2019-07-20 05:26] LABS: Basophils Absolute Auto 0.1 K/mm3 (0.0-0.1); Basophils Percent Auto 0.7 % (0.2-1.2); Eosinophils Absolute Auto 0.4 K/mm3 (0-0.3); Eosinophils Percent Auto 4.5 % (0-4.4); Hematocrit 34.4 % (37.0-47.0); Hemoglobin 10.8 g/dL (12.0-15.0); Immature Granulocyte Absolute 0.05 K/mm3 (0.00-0.031); Immature Granulocyte Percent A 0.6 % (0-0.5); Lymphocytes Absolute Auto 3.42 K/mm3 (0.9-3.2); Lymphocytes Percent Auto 39.7 % (18.3-44.2); Mean Corpuscular HGB Conc 31.4 g/dl (32-36); Mean Corpuscular Hemoglobin 27.1 pg (26-34); Mean Corpuscular Volume 86.2 fl (80-100); Mean Platelet Volume 9.5 fl (7.4-10.4); Monocytes Absolute Auto 0.9 K/mm3 (0.1-0.6); Monocytes Percent Auto 10.6 % (2.6-8.5); Neutrophils Absolute Auto 3.8 K/mm3 (1.3-6.7); Neutrophils Percent Auto 43.9 % (45.5-73.1); Platelet Count Result 394 k/mm3 (150-375); Red Blood Count 3.99 M/mm3 (4.2-5.4); Red Cell Distribution Width 13.8 % (11.5-14.5); White Blood Count 8.6 K/mm3 (4.5-10.0)
[2019-07-20 05:42] LABS: Blood Urea Nitrogen 20 mg/dL (7-17); Calcium 9.1 mg/dL (8.4-10.2); Carbon Dioxide 31 mmol/L (22-30); Chloride 100 mmol/L (98-107); Estimated CRCL calculation 65 ml/min; Estimated Glomerular Filt Rate 52; Glucose 89 mg/dL (65-105); Potassium 3.9 mmol/L (3.4-5.0); Sodium 136 mmol/L (137-145)
[2019-07-20 06:00] VITALS: BP 121/60; PULSE 72; RESP 18; TEMP 36.4; O2SAT 99
[2019-07-20] MEDS: ASPIRIN 81 MG ENTERIC TABLET PO (09:15)
[2019-07-20] MEDS: CHOLECALCIFEROL 1,000 UNIT TABLET 5000 UNITS PO (09:15)
[2019-07-20] MEDS: LORATADINE 10 MG TABLET PO (09:16)
[2019-07-20] MEDS: FLUTICASONE PROPIONATE 0.05% NA SPR 16 GM BTL (*BKC) 2 SPRAY NASAL (09:16)
[2019-07-20] MEDS: ENOXAPARIN 40 MG/0.4 ML SYRINGE SUB-Q (09:16)
[2019-07-20] MEDS: ESCITALOPRAM OXALATE 10 MG TABLET 20 MG PO (09:16)
[2019-07-20] MEDS: OMEGA 3 POLYUNSAT FATTY ACIDS 1 GM CAP PO (09:17)
[2019-07-20] MEDS: SPIRONOLACTONE 25 MG TABLET PO (09:17)
[2019-07-20] MEDS: TORSEMIDE 20 MG TABLET 60 MG PO (09:17)
[2019-07-20] MEDS: POTASSIUM CHLORIDE 10 MEQ TABLET.ER PO (09:17)
[2019-07-20] MEDS: MAGNESIUM OXIDE 400 MG TABLET PO (09:17)
[2019-07-20 09:30] VITALS: PULSE 72; RESP 18
--- NOTE | 2019-07-23 11:55 | DS_ITS ---
DATE OF DISCHARGE: 07/20/2019 DISCHARGE PRIMARY REHABILITATION IMPAIRMENT CATEGORY: Orthopedic with etiological diagnosis of distal fibular fracture. DISCHARGE ACTIVE COMORBID CONDITIONS: 1. Bronchial asthma. 2. Peripheral neuropathy. 3. Narcolepsy. 4. Hyperlipidemia. REASON FOR ADMISSION: The patient presented to [facility] on 07/08/2019 for a closed reduction and external fixation of the right ankle, which she injured on 07/04/2019, when she fell cleaning off a bookcase. She was initially seen at [facility] where her ankle was splinted. She tried to ambulate in the emergency room and fell and fell again following day. Follow up with Dr. Dorantes and due to her repeated falling and instability, she was emergently taken to the operating room where she underwent a closed reduction and external fixation placement. On 07/11/2019, she was taken back to the OR for removal of the external fixator and open reduction and internal fixation by Dr. Dorantes. She was nonweightbearing on the right lower extremity for the next 6 weeks postoperatively. Her splint needed to stay on and dry until followup in the orthopedic office in 2 weeks when sutures will be taken out. She was developing pain and also notedly became anemic because of blood loss. She was discharged to the rehab on Lovenox. She met the ARU criteria, does not have a qualifying 60% diagnosis. She was appropriate ARU 40% patient who during the COVID emergency required admission to the acute rehab. She has not traveled outside the [place] or had contact with someone who was ill, travel outside the [place] in the last 21 days. She has not traveled to any area of the [place] that was experiencing known transmission of the [place] virus and has not had any close personal contact as well. She herself had no fever, no respiratory illness symptoms. She was transferred to us from [facility] with the history of having had the major surgery in the last 100 days as mentioned above. LEVEL OF FUNCTION AT THE TIME OF ADMISSION: The patient was independent for eating, required setup for oral hygiene, supervision for toileting, partial assistance for bathing, setup for upper body dressing, partial assistance for lower body dressing, and footwear. She required supervision for rolling in bed, sit to lying, lying to sit. She required partial assistance for sit to stand, chair transfer, toilet transfer, car transfer, walking 10 feet, 50 feet with 2 turns, but she was unable to walk 150 feet. She required partial assistance for 10 feet on uneven surfaces. She was unable to take curb or step, 4 steps, 12 steps. She required partial assistance for picking up object and the wheelchair was not applicable. ANTICIPATED REHAB GOALS: Anticipated rehab goals at the time of admission were to make her independent in eating, oral hygiene, toileting, bathing, upper body dressing, lower body dressing, rolling in bed, sit to lying, lying to sit, sit to stand, chair transfer, toilet transfer, car transfer, walking 10 feet, 50 feet with 2 turns, 150 feet and walking 10 feet on uneven surfaces. She will require partial assistance for curb or step. She was still unable to take 4 steps or 12 steps, but will become independent picking up the object. LEVEL OF FUNCTION AT THE TIME OF DISCHARGE: Fortunately, the patient became independent in all the modalities except she was unable to walk 150 feet and [address] and 12 steps. She required supervision for curb or step. HOSPITAL COURSE: During the hospitalization, she was actively involved in the physical therapy and occupational therapy. There was no other regulatory services consultant involved throughout the entire hospitalization. At the time of discharge, she was independent for ambulating 10 feet, 50 feet with 2 turns.
== END 2019-07-20 13:21 | disposition home health service (06) | DRG 560 ==
PROVIDERS: Admitting Provider Psychiatry & Neurology Neurology; Visit Provider Psychiatry & Neurology Neurology
DX: Z47.89 Encounter for other orthopedic aftercare (principal); I50.32 Chronic diastolic (congestive) heart failure; S82.51XD Displaced fracture of medial malleolus of right tibia, subsequent encounter for closed fracture with routine healing; E78.5 Hyperlipidemia, unspecified; G47.419 Narcolepsy without cataplexy; G47.33 Obstructive sleep apnea (adult) (pediatric); G62.9 Polyneuropathy, unspecified; I11.0 Hypertensive heart disease with heart failure; J45.909 Unspecified asthma, uncomplicated; Z98.890 Other specified postprocedural states; W11.XXXD Fall on and from ladder, subsequent encounter; Z79.01 Long term (current) use of anticoagulants; Z79.82 Long term (current) use of aspirin
CPT/HCPCS: 36415; 80048; 85025; 97110; 97116; 97161; 97165; 97530; 97535; 97542; A9270; J1650